=== PATIENT | female | born 1980 | race African-American/Black ===

== ENCOUNTER 2024-04-30 11:45 | Emergency (ER) | payer OTHER ==
[~2024-04-30] VITALS: Ht 167.6 cm; Wt 110.0 kg
[2024-04-30 12:07] VITALS: TEMP 98
[2024-04-30] MEDS ORDERED: OXYC-38 PO (15:04)
[2024-04-30] MEDS: LIDOCAINE 5% TRANSDERMAL PATCH TD ONE (15:09)
[2024-04-30] MEDS: OxyCODONE HCL/ACETAMINOPHEN 5-325 MG TABLET PO ONE (15:09)
[2024-04-30 15:30] VITALS: BP 133/82; PULSE 66; RESP 16
[2024-04-30] MEDS ORDERED: LIDO700A15 TP (15:42)
== END 2024-04-30 16:28 | disposition home or self-care (01) ==
LOC: EMS 14:19
DX: S20.211A Contusion of right front wall of thorax, initial encounter (principal); V98.8XXA Other specified transport accidents, initial encounter; Y93.89 Activity, other specified; Y92.89 Other specified places as the place of occurrence of the external cause; Y99.8 Other external cause status
CPT/HCPCS: 71101; 99283